=== PATIENT | male | born 1940 | race Caucasian/White ===

== ENCOUNTER 2018-11-21 18:30 | Inpatient (IN) ==
[2018-11-21] MEDS ORDERED: NS 1,000 ML IV ONE (18:38)
[2018-11-21] MEDS ORDERED: ROCEPHIN 1 GM in NS 50 ML IV ONE (18:38)
--- NOTE | 2018-11-21 19:11 | Diag Imaging Result Doc PS360 ---
EXAM: CHEST-PORTABLE - 11/21/2018 HISTORY: pna TECHNIQUE: Portable chest COMPARISON: None. FINDINGS: Inspiration is mildly shallow, with mild atelectasis at lung bases. There is possibly mild infiltrate at the left infrahilar region. There is no dense consolidation, pleural effusion, or pneumothorax identified. Heart size appears to be normal. IMPRESSION: Mildly shallow inspiration, mild atelectasis at lung bases. Possible mild infrahilar infiltrate on the left. Electronically signed by Tutu Ho 11/21/2018 7:09 PM
[2018-11-21 19:12] LABS: URINE SOURCE CLEAN CATCH
[2018-11-21 19:19] LABS: BASO# 0.01 X1000 (0.0-0.2); BASO% 0.1 % (0.0-0.8); EOS# 0.03 X1000 (0.0-0.7); EOS% 0.3 % (0.0-10.0); HEMATOCRIT 27.5 % (42.0-52.0); IMM GRAN# 0.04 X1000 (0.0-0.04); IMM GRAN% 0.4 % (0.0-0.5); LYMPH# 0.45 X1000 (1.2-3.4); LYMPH% 3.9 % (20.5-51.1); MCHC 32.7 g/dL (33-37); MCV 85.7 FL (81-99); MONO# 0.71 X1000 (0.11-0.59); MONO% 6.2 % (1.7-9.3); MPV 9.3 FL (7.4-10.4); NEUT# 10.18 X1000 (1.4-6.5); NEUT% 89.1 % (42.2-75.2); PLT 333 X1000 (130-400); RBC 3.21 XMIL (4.7-6.1); RDW 18.1 % (11.5-14.5); WBC 11.42 X1000 (4.8-10.8)
[2018-11-21 19:20] LABS: BILIRUBIN URINE SMALL (NEGATIVE); BLOOD URINE MODERATE (NEGATIVE); COLOR YELLOW; GLUCOSE URINE NEGATIVE (NEGATIVE); KETONE URINE 10 mg/dL (NEGATIVE); LEUKOCYTES URINE MODERATE (NEGATIVE); NITRITE URINE NEGATIVE (NEGATIVE); PROTEIN URINE 200 mg/dL (NEGATIVE); SP GRAVITY URINE 1.023; TURBIDITY URINE HAZY (CLEAR); UROBILINOGEN URINE 6 mg/dL (NORMAL)
[2018-11-21 19:21] LABS: UR EPITHELIAL CELLS <10 /HPF (<10); URINE BACTERIA NEGATIVE /HPF; URINE RBC TNTC /HPF (<10); URINE WBC 20-40 /HPF (<10)
[2018-11-21 19:40] LABS: INR 1.05; PROTIME 14.6 Seconds (11.0-16.0)
[2018-11-21 19:41] LABS: PTT 32.7 Seconds (22.3-41.8)
[2018-11-21 19:42] LABS: AGAP 13; ALB/GLOB RATIO 1.1; ALBUMIN 2.7 g/dL (3.5-5.0); ALKALINE PHOSPHATASE 580 U/L (32-122); BUN 16 mg/dL (8-22); CALCIUM 8.7 mg/dL (8.8-10.2); CHLORIDE 92 mmol/L (98-107); CK PROFILE 68 U/L (24-204); COSMO 262; CREATININE 0.7 mg/dL (0.7-1.2); ESTIMATED GFR > 60; GLUCOSE 96 mg/dL (70-104); GOT 119 U/L (10-34); GPT 54 U/L (10-44); POTASSIUM 4.9 mmol/L (3.5-5.1); SODIUM 130 mmol/L (136-145); TCO2 25 mmol/L (25-35); TOTAL BILIRUBIN 4.47 mg/dL (0.20-1.00); TOTAL PROTEIN 5.2 g/dL (6.3-8.3)
--- NOTE | 2018-11-21 20:47 | PROVIDER DOCUMENTATION ---
This chart was entered by Ebony Palmer Scribe, acting as scribe for Mattie Martins MD. HPI-General Adult - General Stated Complaint: AMS,N/V,POSS UTI Time Seen by Provider: 11/21/18 18:33 Source: patient, EMS Allergies/Adverse Reactions: Patient Allergies Allergy/AdvReac Type Severity Reaction Status Date / Time No Known Allergies Allergy Verified 11/21/18 19:12 - History of Present Illness -Gen Adult Nature of Presenting Problems: Pt is 78/m presenting to ED via EMS, which family called. Pt is reported as having been dx w/ UTI and just starting keflex today. He is confused and combative and sts that his abd hurts. Reported N/V. 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 It is undetermined whether or not patient has been eating and drinking enough. Pt also has hx of cancer, but unsure as to what type at time of arrival. Location of Pain/Injury: reports: abdomen Pain Radiation: reports: no radiation Quality of Pain: reports: other (unsure, as pt is AMS and combative, but does state that is generally hurts.) Severity: reports: moderate Onset/Duration: reports: unsure Timing: reports: still present Context/Activities at Onset: reports: none Modifying Factors: improves with: nothing Associated Symptoms: reports: fever/chills (some low grade temp. 100.1), nausea, vomiting Similar Symptoms Previously?: Yes Recently seen or treated by another doctor?: Yes Review of Systems - Adult - REVIEW OF SYSTEMS - ADULT Constitutional: reports: fever. denies: chills Ears, Nose, Mouth & Throat: reports: no symptoms reported Cardiovascular: reports: no symptoms reported Respiratory: reports: no symptoms reported Gastrointestinal: reports: abdominal pain, nausea, vomiting Genitourinary: reports: other (Current UTI reported, no specific symptoms identified.) Musculoskeletal: reports: no symptoms reported Integumentary: reports: no symptoms reported Neurological: reports: no symptoms reported Psychiatric: reports: no symptoms reported Endocrine: reports: no symptoms reported Hematologic/Lymphatic: reports: no symptoms reported Allergic/Immunologic: reports: no symptoms reported All Other Systems: Reviewed and Negative Past History - Adult - PAST MEDICAL HISTORY-ADULT Review of Records: reports: Old Records Reviewed, Nursing Assessment Review, Medications Reviewed, Social history reviewed & non-contributory. Physical Exam-General - PHYSICAL EXAM-ADULT Initial Vital Signs Reviewed: Yes - CONSTITUTIONAL General Appearance: alert, moderate distress, thin, anxious, combative, other (AMS) - EYES Eyes: PERRL/EOMI, pink conjunctivae - HEAD, EARS, NOSE, MOUTH & THROAT HENMT: negative: moist mucous membranes (Dry, w/ greenish medication reminence from chewing Kelflex at home.) - NECK Neck: non-tender, full range of motion, supple, normal inspection - RESPIRATORY Respiratory: lungs clear - CARDIOVASCULAR Cardiovascular: regular rate, rhythm - GASTROINTESTINAL (ABDOMEN) Abdominal Exam: normal bowel sounds, soft, tenderness (diffuse abd tenderness) - MUSCULOSKELETAL Back Exam: normal inspection, no CVA tenderness, no vertebral tenderness Extremity: normal range of motion, non-tender, normal gait, other (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) - SKIN Integumentary: normal color, warm/dry - NEUROLOGIC Neurologic: grossly normal - PSYCHIATRIC Psych/Mental Status: anxious, other (Pt is confused and combative, disagreeing w/ everything that is spoken to him.) Progress - PLAN OF CARE/RESULTS Progress/Plan/Lab Results: Orders Category Date Time Status Cardiac Monitoring DIRECTED Care 11/21/18 18:33 Active Finger Stick Blood Sugar (ED) DIRECTED Care 11/21/18 18:33 Active Oxygen Therapy- ED Nursing DIRECTED Care 11/21/18 18:33 Active Saline Loc NOW Care 11/21/18 18:33 Active CHEST-PORTABLE [RAD] Stat Exams 11/21/18 18:33 Ordered BLOOD CULTURE [BLDCUL] Stat Lab 11/21/18 18:38 Uncollected CBC WITH ELECTRONIC DIFF [HEME] Stat Lab 11/21/18 18:33 Uncollected CK PROFILE [SP CHEM] Stat Lab 11/21/18 18:33 Uncollected COMPREHENSIVE METABOLIC PANEL [CHEM] Stat Lab 11/21/18 18:33 Uncollected LACTATE, PLASMA [CHEM] Stat Lab 11/21/18 18:33 Uncollected PROTIME WITH INR [COAG] Stat Lab 11/21/18 18:33 Uncollected PTT [COAG] Stat Lab 11/21/18 18:33 Uncollected TROPONIN T Stat Lab 11/21/18 18:33 Uncollected URINALYSIS [URINALYSIS] Stat Lab 11/21/18 18:33 Ordered 0.9% Sodium Chloride Inj [Ns] 1,000 ml Med 11/21/18 18:38 Active IV 999 mls/hr CefTRIAXONE [Rocephin] 1 gm Med 11/21/18 18:38 Active 0.9% Sodium Chloride Inj [Ns] 50 ml IV NOW Altered Mental Status Stat Oth 11/21/18 18:33 Ordered EKG [EKG] Stat Ther 11/21/18 18:33 Ordered [facility] [address] , [address], [place] [address] Department of Imaging Patient: KESHAV GUARDADO ADM Date: 11/21/18 MR#: [id number] : 1940 ADM Status: PRE ER Age/Sex: 78/M Room/Bed: Loc: ED Ordering Physician: Mattie Martins MD Family Physician: Reason for Procedure: pna ___ Signed EXAM: CHEST-PORTABLE - 11/21/2018 HISTORY: pna TECHNIQUE: Portable chest COMPARISON: None. FINDINGS: Inspiration is mildly shallow, with mild atelectasis at lung bases. There is possibly mild infiltrate at the left infrahilar region. There is no dense consolidation, pleural effusion, or pneumothorax identified. Heart size appears to be normal. IMPRESSION: Mildly shallow inspiration, mild atelectasis at lung bases. Possible mild infrahilar infiltrate on the left. Electronically signed by Tutu Ho 11/21/2018 7:09 PM 11/21/181908 Interpreting Physician: Tutu Ho MD Dictated Date/Time: 11/21/181907 cc: Mattie Martins MD; Result Diagrams: 11/21/18 18:50 11/21/18 18:50 - CONSULTS/PCP/HOSPITALIST Notification #1 *Consult/PCP/Hospitalist*: Dr. Mccormack Consult Disposition: Admit Departure - Departure Date of Disposition Decision: 11/21/18 Time of Disposition Decision: 22:03 DIAGNOSIS: Mental confusion, Pneumonia, Hematuria, Metastatic cancer to liver Disposition: ADMITTED INPATIENT 09 Certified Medical Emergency: Emergent Condition: Stable Referrals and Follow-Ups: RADHA NARVAEZ [Other] - Critical Care Note This patient required my direct & personal management of CC.: No Attestation - Physician/ NOÉ Attestation Patient care was provided by Advanced Practice Provider:: No The physician spent face to face time with patient:: Yes Advanced Practice Provider documentation review:: Supervising physician onsite and consulted in the evaluation and care of this patient. The physician did have a face to face encounter with the patient. This chart was documented by the indicated scribe, (Ebony Palmer, [employer]) and accurately reflects the services I performed and decisions made by me, Mattie Maritns MD, as attested by the provider's signature.
--- NOTE | 2018-11-21 21:16 | Diag Imaging Result Doc PS360 ---
EXAM: CT ABD/PELVIS W/IV CONT ONLY - 11/21/2018 HISTORY: pyelo TECHNIQUE: CT abdomen/pelvis with intravenous contrast COMPARISON: None. FINDINGS: There are streak artifacts from the patient's arms which limit detail. The liver demonstrates heterogeneous attenuation, with apparent subtle solid lesions, presumably metastases. There are also some scattered hepatic cysts. There is intrahepatic biliary ductal dilatation. There are apparent lymph nodes with necrosis at the joy hepatis. The possibility of these are obstructing the common hepatic duct cannot be excluded. There is edema around the gallbladder. There are no calcified gallstones identified. There is no pancreatic inflammation identified. There is aneurysmal dilatation of the mid aorta measuring 3.7 x 3.9 cm. There is an inferior vena cava filter present. There is mild abdominal retroperitoneal adenopathy. There is a large mass/adenopathy at the left iliac region. There is a destructive mass involving the nearby left acetabulum. There is left inguinal adenopathy. There is a left ureteral stent in place. There is mild fullness of the left upper renal collecting system. The left kidney is mildly small and enhances less densely than the right. However, both kidneys enhance relatively homogeneously. There is no discrete evidence of pyelonephritis. IMPRESSION: Heterogeneous enhancement liver, some which apparently relates to hepatic metastases. Intrahepatic biliary ductal dilatation. Possible obstruction of the common hepatic duct by lymph nodes at the joy hepatis. Edema around gallbladder. No calcified gallstones. 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 Mild abdominal retroperitoneal adenopathy. Large mass/adenopathy at left iliac region. Destructive lesion involving the left acetabulum. Left inguinal adenopathy. Left ureteral stent in place. Mild fullness of left upper renal collecting system. No discrete evidence of pyelonephritis. This exam was performed using automated exposure control, adjustment of mA or kV according to patient size, and/or use of iterative reconstruction technique. Electronically signed by Tutu Ho 11/21/2018 9:14 PM
--- NOTE | 2018-11-21 21:23 | Diag Imaging Result Doc PS360 ---
EXAM: CT HEAD W/CONTRAST - 11/21/2018 HISTORY: ams - verbal order per Dr Martins - contrast given prior to ct hd order TECHNIQUE: CT head with intravenous contrast COMPARISON: None. FINDINGS: There is no evidence of intracranial hemorrhage, mass effect, midline shift, or hydrocephalus. There are mild chronic appearing microvascular ischemic changes. There is no indication of recent infarct, although acute infarcts may not be immediately visible. There is no abnormal enhancement identified. There is no evidence of skull fracture. IMPRESSION: No visible acute intracranial abnormality. No hemorrhage, mass effect, or abnormal enhancement seen. This exam was performed using automated exposure control, adjustment of mA or kV according to patient size, and/or use of iterative reconstruction technique. Electronically signed by Tutu Ho 11/21/2018 9:20 PM
--- NOTE | 2018-11-21 23:45 | ED EKG INTERP ---
This chart was entered by Ebony Palmer Scribe, acting as scribe for Mattie Martins MD. EKG Interpretation - EKG Time of EKG reading by physician:: 19:21 EKG Read and Signed by:: Mattie Martins EKG Interpretation (*Must complete 3 of following elements*): Abnormal (Normal sinus rhythm, left axis deviation, Left bundle branch block,, Abnormal ECG) Rate: 84 Rhythm: Normal sinus Attestation - Physician/ NOÉ Attestation Patient care was provided by Advanced Practice Provider:: No The physician spent face to face time with patient:: Yes Advanced Practice Provider documentation review:: Supervising physician onsite and consulted in the evaluation and care of this patient. The physician did have a face to face encounter with the patient. This chart was documented by the indicated scribe, (Ebony Palmer Scribe) and accurately reflects the services I performed and decisions made by me, Mattie Martins MD, as attested by the provider's signature.
--- NOTE | 2018-11-22 00:44 | HISTORY AND PHYSICAL ---
PRIMARY CARE PHYSICIAN: The patient is visiting from [place]. His primary care physician is Dr. Humberto Mirza. CHIEF COMPLAINT: Altered mental status. HISTORY OF PRESENTING ILLNESS: An 78-year-old male with a history of bladder cancer with liver metastases, seizures, left mass in his iliac region and DVT who had presented to emergency department due to mental status changes for the past 3 days. As per family, he was becoming more confused, and combative, and agitated and subsequently had brought into the emergency department. In the ED, he was evaluated and he was moderately confused and refusing any kind of treatment. The patient's family had stated that he recently had a left ureteral stent replaced and he did have a urinary tract infection and they thought that his UTI probably returned again. The patient had laboratories done which did show elevated white blood cell count., and his urinanalysis showed blood.. Due to these presenting symptoms and presumed infection from UTI, it was thought that he would need admission for further management. At the time of my examination, he was mildly agitated and confused. However, he was denying any headache, chest pain, shortness of breath or any weight changes. PAST MEDICAL HISTORY: Includes seizures, bladder cancer with metastases to liver, left iliac mass, DVT. PAST SURGICAL HISTORY: Left ureteral stent, left IVC filter, bilateral hip surgery, left BKA. ALLERGIES: Depakote, Vimpat, Versed, Tegretol, Keppra, Provigil, Cipro, Zocor, trazodone, latex, Bactrim, Seroquel, phenobarbital, Trileptal, doxycycline. CURRENT MEDICATIONS: Include Briviact 50 mg 1 p.o. b.i.d., Lamictal XR 200 mg 2 tablets p.o. at bedtime, [place] 10 one p.o. q.6 hours, Detrol 2 mg 1 p.o. at bedtime, Voltaren gel to apply to bilateral knees, Prevacid 30 mg 1 p.o. q.a.m., testosterone injections q.weekly, Genotropin injection 0.4 mg daily, Flomax 0.4 mg p.o. daily, CBD oil and aspirin 325 mg p.o. daily. SOCIAL HISTORY: He is a former smoker. No history of alcohol or illicit drug use. FAMILY HISTORY: No history of coronary disease. REVIEW OF SYSTEMS: Fourteen point review of systems as listed in HPI. Other systems negative. PHYSICAL EXAMINATION: GENERAL: Mildly confused elderly male. He is without any respiratory distress. VITAL SIGNS: Temperature 99.0 degrees, pulse 88, respiration 34, blood pressure 127/85. HEENT: Atraumatic, normocephalic. PERRLA. NECK: No masses. CHEST: Bibasilar rales. CARDIOVASCULAR: Regular rate and rhythm. ABDOMEN: Soft, positive bowel sounds. EXTREMITIES: There is a left BKA. GENITOURINARY: No bladder distention. SKIN: Warm. LABORATORIES AND STUDIES: WBCs 11.42, hemoglobin 9.1, hematocrit 27.5, platelets 233,000. Sodium 130, potassium 4.9, chloride 92, CO2 is 25, BUN is 16, creatinine 0.7, glucose is 96. Troponin is 0.010. UA shows moderate blood and leukocytes. Chest x-ray shows possible mild infrahilar infiltrates on the last. However, this was seen on previous CAT scan about a month ago. Abdominal CT shows hepatic metastasis, and large mass in the left iliac region and left ureteral stent in place. CT of the head, no visible acute intracranial abnormality. ASSESSMENT: An 78-year-old elderly male with a history of seizures, bladder cancer with liver metastases, left iliac mass and deep venous thrombosis, who had presented to the emergency department with 3 days history of having fever and mental status changes. He was evaluated in the emergency department due to suspicion of a UTI as the source of his infection. He will require admission for further management. 1. Altered mental status. 2. Fever. 3. Suspected urinary tract infection. 4. Seizures. 5. Liver metastases. PLAN: 1. We will admit patient to medical floor with telemetry. 2. We will continue with neurologic checks. 3. We will check blood cultures and urine cultures. Start patient on empiric antibiotics. 4. We will put patient on seizure precaution and restart his antiepileptic agents. 5. Restart other home medications. 6. We will continue to follow, and reassess and make further recommendation based on patient's clinical course. cc: Shelton Mccormack MD MTDD
[2018-11-22] MEDS ORDERED: ZOFRAN IV PRN (02:26)
[2018-11-22] MEDS ORDERED: NS 1,000 ML IV SCH (02:26)
[2018-11-22 05:33] LABS: URINE SOURCE CLEAN CATCH
[2018-11-22 05:56] LABS: BILIRUBIN URINE MODERATE (NEGATIVE); BLOOD URINE MODERATE (NEGATIVE); COLOR YELLOW; GLUCOSE URINE NEGATIVE (NEGATIVE); KETONE URINE 20 mg/dL (NEGATIVE); LEUKOCYTES URINE NEGATIVE (NEGATIVE); NITRITE URINE NEGATIVE (NEGATIVE); PROTEIN URINE 100 mg/dL (NEGATIVE); TURBIDITY URINE CLEAR (CLEAR); UROBILINOGEN URINE 4 mg/dL (NORMAL)
[2018-11-22 06:17] LABS: UR EPITHELIAL CELLS <10 /HPF (<10); URINE BACTERIA NEGATIVE /HPF; URINE RBC TNTC /HPF (<10)
[2018-11-22] MEDS ORDERED: NORCO-10 PO PRN (06:20)
--- NOTE | 2018-11-22 06:57 | EKG Report ---
Test Performed on : 11/21/2018 7:21:39 PM Test Reason : ams Blood Pressure : / mmHG Vent. Rate : 084 BPM Atrial Rate : 084 BPM P-R Int : 188 ms QRS Dur : 162 ms QT Int : 404 ms P-R-T Axes : 041 -48 084 degrees QTc Int : 477 ms Normal sinus rhythm. Left axis deviation Left bundle branch block Abnormal ECG No previous ECGs available Unconfirmed Result
[2018-11-22 07:10] LABS: URINE CASTS NONE SEEN; URINE CRYSTALS NONE SEEN; URINE SMALL ROUND CELLS NONE SEEN; URINE YEAST NONE SEEN
[2018-11-22 07:11] LABS: SP GRAVITY URINE 1.015
[2018-11-22 07:37] LABS: BASO# 0.01 X1000 (0.0-0.2); BASO% 0.1 % (0.0-0.8); EOS# 0.04 X1000 (0.0-0.7); EOS% 0.4 % (0.0-10.0); HEMATOCRIT 25.7 % (42.0-52.0); HEMOGLOBIN 8.2 g/dL (14.0-18.0); IMM GRAN# 0.04 X1000 (0.0-0.04); IMM GRAN% 0.4 % (0.0-0.5); LYMPH# 0.47 X1000 (1.2-3.4); LYMPH% 4.5 % (20.5-51.1); MCH 27.6 PG (27-31); MCHC 31.9 g/dL (33-37); MCV 86.5 FL (81-99); MONO# 0.67 X1000 (0.11-0.59); MONO% 6.4 % (1.7-9.3); MPV 9.4 FL (7.4-10.4); NEUT# 9.29 X1000 (1.4-6.5); NEUT% 88.2 % (42.2-75.2); PLT 296 X1000 (130-400); RBC 2.97 XMIL (4.7-6.1); RDW 18.5 % (11.5-14.5); WBC 10.52 X1000 (4.8-10.8)
[2018-11-22 07:38] LABS: AGAP 10; BUN 12 mg/dL (8-22); CALCIUM 8.6 mg/dL (8.8-10.2); CHLORIDE 94 mmol/L (98-107); COSMO 261; CREATININE 0.6 mg/dL (0.7-1.2); ESTIMATED GFR > 60; GLUCOSE 102 mg/dL (70-104); POTASSIUM 4.5 mmol/L (3.5-5.1); SODIUM 130 mmol/L (136-145); TCO2 26 mmol/L (25-35)
[2018-11-22 07:50] LABS: BANDS 17 % (0-1); LYMPHS 3 % (21-51); MONO 4 % (1-9); SEGS 76 % (42-75)
[2018-11-22] MEDS ORDERED: ASPIRIN PO SCH (09:00)
[2018-11-22] MEDS: BRIVIACT PO SCH ×2 (10:49→22:53)
[2018-11-22] MEDS: CALTRATE 600 + D PO SCH (10:49)
[2018-11-22] MEDS: VITAMIN C PO SCH (10:49)
[2018-11-22] MEDS: PRILOSEC PO SCH (10:52)
[2018-11-22] MEDS: CULTURELLE PO SCH (10:56)
[2018-11-22] MEDS: FLOMAX PO SCH (11:14)
[2018-11-22] MEDS: PATIENT'S OWN MED PO SCH ×2 (12:19→22:01)
--- NOTE | 2018-11-22 14:33 | PROGRESS NOTE ---
DATE: 11/22/2018 SUBJECTIVE: The patient has no major complaints. He looks jaundiced. He is having some pain, but overall improved. OBJECTIVE: Blood pressure 131/59, heart rate 79, respiratory rate 20, temperature 99.5 degrees and 98% on 2 L.Cardiovascular: Regular rate and rhythm. Pulmonary: Bilateral breath sounds diminished at the bases. GI: Soft, nontender, and nondistended. Bowel sounds are positive. LABORATORY DATA: White count is 10, hemoglobin and hematocrit 8 and 25, and platelets of 296,000. Sodium 130. Urine still shows qbe-nuazatyo-cr-count red blood cells, and 10 to 20 white blood cells. PROBLEM LIST: 1. UTI. Awaiting urinary culture. Continue empiric antibiotics and follow. 2. Lymphadenopathy which I think is probably related to the cancer causing acetabular pain, but also possibly causing obstructive symptoms and his liver. May get a GI opinion and Oncology opinion. We can start off with an Oncology opinion, and we will continue to follow. I am just a little concerned that there is a possibility that hardware is infected. We will continue to follow. I will get a urology opinion. DISPOSITION: 1. Pending his clinical status. We will continue to follow. 2. Hyponatremia. Check urine electrolytes and monitor closely. cc: Henry Palomares MD
[2018-11-22] MEDS ORDERED: VANCOMYCIN IV PER PHARMACY MISC SCH (19:15)
[2018-11-22] MEDS ORDERED: VANCOMYCIN 1,600 MG in NS 250 ML IV ONE (20:00)
[2018-11-22] MEDS ORDERED: MORPHINE IM ONE (20:12)
[2018-11-22] MEDS: ROCEPHIN 1 GM in NS 50 ML IV SCH (20:30)
[2018-11-22] MEDS ORDERED: HALDOL IV ONE (21:01)
--- NOTE | 2018-11-22 21:10 | CONSULTATION ---
DATE OF CONSULTATION: 11/22/2018 CHIEF COMPLAINT: 1. Metastatic bladder cancer. 2. Left ureteral stent 3. Altered mental status. HISTORY OF PRESENT ILLNESS: Mr. Field is an 78-year-old with history of metastatic bladder cancer with liver metastasis and significant left iliac adenopathy, history of seizures, history of DVT, who presented to the emergency room on 11/21/2018 due to altered mental status for several days. Per his family, he was becoming more agitated, confused, and combative. They brought him to the emergency room for evaluation. The patient was evaluated by the ED and was admitted by the hospitalists for further workup. The patient had a CT scan of the abdomen, which showed a left ureteral stent that was in good position within the left kidney with no evidence of hydronephrosis, as well as significant lymphadenopathy in the left iliac chain that progressed into the inguinal area. The patient also had lymphadenopathy near the joy hepatis with congestion and multiple metastatic lesions to the liver. The patient was found to have a normal renal function 0.7 creatinine, white blood cell count of 11, with elevated liver enzymes and bilirubin. Urology was consulted today regarding possible urinary tract infection with a stent in place. The patient had 2 urinalyses sent so far, which have both showed no evidence of bacteria and are showing mostly red blood cells with elevated bilirubin. The patient has a history of being diagnosed with bladder cancer back in 2012, which was confined to the bladder with no muscle involvement, and he has had several recurrences since then; however, back in April, he was found to have multiple metastatic lesions and underwent stent placement in July for the first time due to left hydronephrosis. This was exchanged most recently in September 2018. The patient has been altered and confused off and on since then. The patient has history of multiple falls. However, per family appears to be more confused and agitated. The patient was complaining of abdominal pain on presentation, but today denies any chest pain, shortness of breath, fevers, or chills. The patient has had some low- grade temperatures around 99, but no true fevers. PAST MEDICAL HISTORY: 1. Seizures. 2. Metastatic bladder cancer. 3. DVTs. 4. History of left [id number]-[id number] amputation. PAST SURGICAL HISTORY: 1. Multiple transurethral resection of bladder tumors. 2. IVC filter placement. 3. Left ureteral stent placement. 4. Left vixpv-eew-kmmx amputation. 5. Bilateral hip surgery. ALLERGIES: 1. Depakote. 2. Vimpat 3. Versed 4. Tegretol. 5. Keppra. 6. Provigil. 7. Cipro. 8. Zocor. 9. Trazodone. 10. Lasix. 11. Bactrim. 12. Seroquel. 13. Phenobarbital. 14. Doxycycline. CURRENT MEDICATIONS: 1. Briviact 50 mg 1 pill b.i.d. 2. Lamictal XR 200 mg 2 pills p.o. at bedtime. 3. [place] 10 mg q.6 h. as needed for pain. 4. Detrol 2 mg p.o. at bedtime. 5. Prevacid 30 mg p.o. 6. Testosterone injections weekly. 7. Genatropine injection 0.4 mg daily. 8. Flomax 0.4 mg daily. 9. CBD oil. 10. Aspirin 325 mg. SOCIAL HISTORY: Patient is a former smoker, but denies alcohol or illicit drug use. FAMILY HISTORY: Denies family history of malignancy. REVIEW OF SYSTEMS: A 12 point review of systems was performed. All pertinent positives and negatives in HPI. PHYSICAL EXAMINATION: Vital Signs: Temperature 98.6, heart rate 79, blood pressure 128/57, oxygenation 95% on room air. General: No acute distress. Resting comfortably in bed. Alert, but not oriented to place, situation, or time, only oriented to self. HEENT: Normocephalic, atraumatic. Pupils equal, round, and reactive to light. Evidence of scleral icterus. Neck: Trachea midline with no palpable masses. Pulmonary: Good respiratory effort without audible wheezing or rales. Cardiovascular: Regular rate and rhythm. No evidence of lower extremity edema. 1+ lower extremity pulse on the right side. Abdomen: Soft, nontender, nondistended. No palpable masses or hepatosplenomegaly . Extremities: Evidence of a left wfuxl-eii-sbev amputation. Skin: Multiple lesions on the lower extremities, which appear to be stable in appearance and are not erythematous, but appear to be related to venous congestion. Evidence of jaundice. Genitourinary: No suprapubic tenderness. No CVA tenderness. Normal phallus with slightly hypospadiac meatus. Bilateral testicles palpated without masses or tenderness to palpation. Lymphadenopathy in left groin. Neurologic: Gross motor and sensory intact. The patient is alert, but not oriented, DIAGNOSTIC STUDIES: White blood cell count 10.5, hemoglobin 8.2, hematocrit 25.7, platelets 296,000. Sodium 130, potassium 4.5, chloride 94, bicarbonate 26, creatinine 0.6, BUN 12, glucose 102. The patient had liver enzymes done yesterday, which showed bilirubin of 4.47, AST of 119, ALT of 54, alkaline phosphatase of 580. CT abdomen and pelvis imaging reviewed, which showed evidence of good placement of a left ureteral stent with no evidence of hydronephrosis, evidence of multiple lesions within the liver itself, as well as lymphadenopathy near the common bile duct. The patient also has evidence of large lymphadenopathy in the left groin that seems to be coming from the iliac chain. The patient had a negative CT head. ASSESSMENT AND PLAN: Mr. Field is an 78-year-old with history of metastatic bladder cancer, seizures, deep vein thrombosis, who presents in evaluation regarding concern for possible infection of the bladder and possible pyelonephritis. Images reviewed which showed no obvious stranding or signs of pyelonephritis on imaging. The patient has a long history of bladder cancer first diagnosed in 2012 and has now become metastatic with multiple lesions within the liver as well as lymphadenopathy in the iliac chain on the left. The patient has been progressively being more confused. The patient describes this is new in onset. However, also describes he has had multiple reactions to medications where he becomes confused and altered. The patient had a negative CT of the head, which showed no evidence of intracranial masses or signs of stroke. Uncertain what is leading to his altered mental status; however, patient does have significantly elevated liver enzymes and concern for hepatostasis. I think this could be leading to it as his bilirubin is significantly elevated as well as his alkaline phosphatase. The patient had urinalysis which was sent that showed no evidence of bacteria and showed a moderate amount of blood with elevated amounts of bilirubin, which could be causing false-positive RBCs. His urine does look red tinged today, which is at bedside. The patient did not have a urine culture sent on presentation. This has been ordered and awaiting collection. Would continue with IV antibiotics until culture results return and tailor to the possible infection. The patient does have negative UAs for bacteria; however, UTI would be a likely source. I think much of the patient's symptoms are likely related to disease progression and worsening of his cancer. The patient is being seen by Dr. Summers with Hematology/Oncology. The patient would likely benefit from Gastroenterology consultation regarding any optimization of medications that may help with his elevated liver enzymes. Prognosis remains guarded. We will continue monitor from a urologic standpoint. Please call with questions or concerns. cc: Rupesh Perdue MD [facility]
[2018-11-22] MEDS: DETROL PO SCH (22:43)
[2018-11-22] MEDS: VITAMIN D PO SCH (22:43)
[2018-11-23] MEDS: HALDOL IM PRN ×3 (01:02→17:31)
[2018-11-23] MEDS: NS 1,000 ML IV SCH ×3 (05:27→16:31)
[2018-11-23] MEDS: PRILOSEC PO SCH (06:36)
[2018-11-23 07:54] LABS: HEMATOCRIT 25.2 % (42.0-52.0); HEMOGLOBIN 8.1 g/dL (14.0-18.0); MCH 27.7 PG (27-31); MCHC 32.1 g/dL (33-37); MCV 86.3 FL (81-99); MPV 9.1 FL (7.4-10.4); PLT 278 X1000 (130-400); RBC 2.92 XMIL (4.7-6.1); RDW 18.7 % (11.5-14.5); WBC 9.67 X1000 (4.8-10.8)
[2018-11-23 07:55] LABS: EOS# 0.02 X1000 (0.0-0.7); EOS% 0.2 % (0.0-10.0); IMM GRAN# 0.04 X1000 (0.0-0.04); IMM GRAN% 0.4 % (0.0-0.5); LYMPH# 0.35 X1000 (1.2-3.4); LYMPH% 3.6 % (20.5-51.1); MONO% 5.2 % (1.7-9.3); NEUT# 8.76 X1000 (1.4-6.5); NEUT% 90.6 % (42.2-75.2)
[2018-11-23 07:57] LABS: AGAP 11; ALB/GLOB RATIO 0.7; ALBUMIN 2.3 g/dL (3.5-5.0); ALKALINE PHOSPHATASE 572 U/L (32-122); BUN 13 mg/dL (8-22); CALCIUM 9.1 mg/dL (8.8-10.2); CHLORIDE 96 mmol/L (98-107); COSMO 261; CREATININE 0.6 mg/dL (0.7-1.2); ESTIMATED GFR > 60; GLUCOSE 98 mg/dL (70-104); GOT 141 U/L (10-34); GPT 58 U/L (10-44); POTASSIUM 3.9 mmol/L (3.5-5.1); SODIUM 130 mmol/L (136-145); TCO2 23 mmol/L (25-35); TOTAL BILIRUBIN 5.93 mg/dL (0.20-1.00); TOTAL PROTEIN 5.8 g/dL (6.3-8.3)
--- NOTE | 2018-11-23 08:18 | PROGRESS NOTE ---
DATE: 11/23/2018 SUBJECTIVE: Slight agitation overnight per patient's cousin, who is at bedside. The patient denies any pain this morning. Denies any nausea or vomiting. Has urinated several times. Remains afebrile. OBJECTIVE: Vital signs: Temperature 98 degrees, heart rate 79, blood pressure 118/61, oxygenation saturation 97% on room air. General: No acute distress. Resting comfortably in bed. Evidence of jaundice. Respiratory: Good respiratory effort without audible wheezing or rales. Abdomen: Soft, nontender, nondistended. No palpable masses. Genitourinary: No suprapubic tenderness. No CVA tenderness. Normal phallus. Bilateral testicles palpated without masses. MICROBIOLOGY: Gram-positive cocci in the blood. Urine culture in lab. ASSESSMENT AND PLAN: Mr. Field is an 78-year-old with a history of metastatic bladder cancer, seizures, deep venous thromboses, who presents in evaluation for possible infection and pyelonephritis. The patient had a CT scan which showed no obvious pyelonephritis. The patient has a long history of bladder cancer and was found to have metastatic lesions to the liver, bone, as well as a large lymph node within the left iliac chain. The patient has been altered and confused for several days now per family. The patient came in with elevated liver enzymes and bilirubin. The patient's renal function was normal with a white blood cell count downtrending yesterday. Awaiting a.m. labs today. We will continue with antibiotics as patient does have positive blood cultures. We will continue to tailor antibiotics to culture data. We will follow up his urine culture and treat appropriately. We will continue to monitor. Please call with questions or concerns. cc: Rupesh Perdue MD [facility]
[2018-11-23] MEDS: VITAMIN C PO SCH (08:53)
[2018-11-23] MEDS: ASPIRIN EC PO SCH (08:53)
[2018-11-23] MEDS: BRIVIACT PO SCH ×2 (08:53→21:15)
[2018-11-23] MEDS: FLOMAX PO SCH (08:53)
[2018-11-23] MEDS: CULTURELLE PO SCH (08:53)
[2018-11-23] MEDS: CALTRATE 600 + D PO SCH (08:53)
[2018-11-23] MEDS: PATIENT'S OWN MED PO SCH ×2 (09:03→21:16)
[2018-11-23] MEDS ORDERED: B & O 16A SUPP PR PRN (11:29)
[2018-11-23] MEDS: PYRIDIUM PO SCH ×4 (11:44→21:17)
--- NOTE | 2018-11-23 14:43 | PROGRESS NOTE ---
DATE: 11/23/2018 SUBJECTIVE: Per family, he has gotten steadily more confused over the last 24 hours, worse last night. He had to be given Haldol. I appreciate the night's hospitalist service attention with the matter. OBJECTIVE: Blood pressure is 126/65. Cardiovascular: Regular rate and rhythm. Temperature is 98.7, pulse rate 82, respiratory rate of 18. Pulmonary: Bilateral breath sounds, clear to auscultation. GI: Soft, nontender and nondistended. Bowel sounds were positive. DIAGNOSTIC DATA: White count is 9, hemoglobin and hematocrit of 8 and 25, platelets 278. Sodium 130. Total bilirubin is 5.9, AST is 141, ALT of 58, alkaline phosphatase 572. He is not doing much better at all. He is jaundiced. PROBLEMS: 1. Urinary tract infection. No growth, though. Blood cultures have one positive for gram- positive cocci, but I think that is likely to be a contaminant, but we will see. We have added vancomycin to his Rocephin and will follow. 2. Metastatic bladder cancer. He has multiple lesions in his liver with obstruction. I have gotten GI opinion. I have not seen Dr. Summers's noted, but the family was tearful, so I am sure he discussed appropriate timeframe, that the patient is declining and may not survive this admission and may not survive for much longer. They are a very reasonable family, and daughter. Unfortunately, though, the patient is not from here, he is from [place]. But at this point, I do not think he can make a 10-hour trip. So we will continue to follow. Continue best supportive measures. Get a Palliative Care consult. 3. Hyponatremia. We will continue fluids gently. 4. Encephalopathy. May be multifactorial. I appreciate the low yield of the ammonia levels. I am not sure if he may have some degree of hepatic encephalopathy, though, but we will follow. DISPOSITION: The family is considering options. If he is not much improved, they will have to consider doing Hospice here locally. We will try to see how he does, because he seems to be deteriorating rapidly. He has metastatic bladder cancer diagnosed in 07/2018, but I think he is declining, unfortunately. We will keep the family posted. He did agree that he did not want to be maintained on life support or have significant measures, so we will continue to follow. cc: Henry Palomares MD
--- NOTE | 2018-11-23 17:10 | HEMO/ONC CONSULTATION ---
DATE: 11/23/2018 REASON FOR CONSULT: History of bladder carcinoma with metastasis to the liver. HISTORY OF PRESENTING ILLNESS: This is an 78-year-old man with history of bladder cancer with liver metastasis, who presents to the emergency department per family with mental status changes for the past 3 days. He is visiting his family from [place] where he has a primary care physician and oncologist. Per family he has become more confused and combative over the past 3 days. Patient's family states he recently had a left ureteral stent replaced and had a urinary tract infection which they suspect has returned. PAST MEDICAL HISTORY: Seizures, bladder cancer with metastasis to liver, left iliac mass, and DVT. PAST SURGICAL HISTORY: Left ureteral stent, left IVC filter, bilateral hip surgery, left BKA. ALLERGIES: Depakote, Vimpat, Versed, Tegretol, Keppra, Provigil, Cipro, Zocor, trazodone, latex, Bactrim, Seroquel, phenobarbital, Trileptal, doxycycline. CURRENT MEDICATIONS: 1. Briviact. 2. Lamictal. 3. [place]. 4. Detrol. 5. Voltaren. 6. Prevacid. 7. Testosterone injection. 8. Genotropin injection. 9. Flomax. 10. CBD oil. 11. Aspirin. SOCIAL HISTORY: He is a former smoker. No history of alcohol or illicit drug use. FAMILY HISTORY: None applicable. REVIEW OF SYSTEM: Negative except that which is listed in the HPI. PHYSICAL EXAMINATION: Vital signs: Temperature 98 degrees, pulse rate 79, respiratory rate 20, blood pressure 118/61, O2 saturation 97% on room air. 0/10 pain. General: Elderly appearing gentleman who is confused. Respiratory: Bibasilar rales. Cardiovascular: Normal S1, S2. Regular rate and rhythm. Abdomen: Soft, nontender, nondistended. Positive bowel sounds. Extremities: Left BKA noted. Pedal edema noted to the right leg. LABORATORY DATA: WBC 9.67, hemoglobin 8.1, hematocrit 25.2, platelet 278,000. Sodium 130, potassium 3.9, creatinine 0.6, bilirubin 5.93, alkaline phosphatase 572. Urine is positive for protein, ketones, moderate blood, moderate bilirubin, 10 to 20 white blood cells. ASSESSMENT: 1. Altered mental status. 2. Suspected urinary tract infection. 3. Seizures. 4. Liver metastasis. 5. Metastatic bladder cancer. 6. History of deep venous thrombosis. PLAN: Patient has bone metastasis, liver metastasis, lymph node metastasis in the abdomen and bile duct obstruction. Continue to treat the patient medically. We will follow up with the family and develop a plan of care. Dictated by FAITH Del Castillo for Cas Summers MD Patient seen and examined. History is noted above. He is visiting family here in [place] has traveled from [place]. Patient diagnosed with bladder cancer several years ago. In June of this year he was diagnosed to have metastatic disease to the liver. Due to his poor performance status, no palliative chemotherapy was recommended. Plan of care has been comfort measures. He was admitted to the hospital with change in mental status and is being treated for urinary tract infection. CT scan done this admission reveals metastatic disease to the liver and significant lymphadenopathy in the joy hepatis causing biliary obstruction and lymphadenopathy involving the abdomen and the pelvis as well as bone metastases. I had a lengthy discussion regarding these findings with the patients family. Comfort measures and hospice has been discussed. They would like to take him home to [place]. Continue current management and hope for mental status recovery in the next 48 hours or so. Hopefully he will be able to travel to [place] if he recovers from this illness. Discussed with Dr. Marielle Summers M.D. cc: Cas Summers MD [facility]
--- NOTE | 2018-11-23 18:44 | GASTROENTEROLOGY CONSULTATION ---
DATE: 11/23/2018 REASON FOR CONSULTATION: Obstructive jaundice. HISTORY OF PRESENT ILLNESS: Mr. Durga Field is an 78-year-old gentleman with a past medical history of metastatic bladder cancer with metastasis to the liver and significant left iliac adenopathy, history of seizures, prior DVT, who presented to the ER on 11/21 with altered mental status for several days. History obtained from medical record and RN given the patient's altered mental status and lack of family to give collateral information at the bedside. Per report, the patient had been noticed to be more agitated, confused, and combative recently. He has had a history of multiple falls in the past. On presentation, he was noted complaining of abdominal pain. No reported fevers, chest pain, shortness of breath, or chills. The patient currently denies any abdominal pain. REVIEW OF SYSTEMS: Unable to obtain given patient's altered mental status. PAST MEDICAL HISTORY: Seizures, metastatic bladder cancer, prior DVT, history of left below-the- knee amputation. PAST SURGICAL HISTORY: Left ureteral stent placement, left IVC filter, bilateral hip surgeries, left BKA, multiple transurethral resection of bladder tumors. HOME MEDICATIONS: Lamictal, [place], Detrol, Prevacid, testosterone injections weekly, Genotropin injection, Flomax, CBD oil, aspirin, Briviact, Voltaren. ALLERGIES: Depakote, Vimpat, Versed, Tegretol, Keppra, Provigil, Cipro, Zocor, trazodone, latex, Bactrim, Seroquel, phenobarbital, Trileptal, doxycycline. SOCIAL HISTORY: He is a former smoker. No alcohol or drug use. FAMILY HISTORY: No history of coronary artery disease. Unable to give family history of GI diseases. PHYSICAL EXAMINATION: Vital Signs: Temperature 98.7 degrees, heart rate of 82, blood pressure 126/55, respiratory rate 18, O2 saturation 99% on room air. General: Patient is awake, confused, naked, lying in the bed, trying to get out of the bed. Does not answer questions appropriately. Unable to follow simple commands. HEENT: Mild scleral icterus. Extraocular motor intact. Moist mucous membranes. Neck: Supple. No JVD or lymphadenopathy. Cardiac: Regular rate and rhythm. No murmurs, rubs, or gallops. Lungs: Clear to auscultation bilaterally. No wheezing. Abdomen: Soft, nontender, nondistended. Normoactive bowel sounds. Palpable hepatomegaly. Extremities: No clubbing, cyanosis, or edema. Left BKA. Neuro: Patient is moving all extremities symmetrically. Cranial nerves 2-12 grossly intact. Unable to follow commands. Slightly agitated. LABS: White count of 9.6, hemoglobin of 8.1 from unknown baseline. On admission his hemoglobin was 9.0. Platelets of 278,000. INR of 1.05. Sodium of 130, potassium of 3.9, chloride of 96, bicarb 23, BUN of 13, creatinine 0.6. Total bilirubin of 5.93, AST of 141, ALT of 58, alkaline phosphatase of 572,000. Ammonia level of 30. Troponin is negative. CK of 68. Total protein of 5.8. Albumin of 2.3. Lactate of 1.5. UA shows proteinuria, ketones, moderate blood, moderate bilirubin, white blood cells 10-20, no epithelial cells. Blood cultures / shows gram-positive cocci. Urine culture, no growth to date. IMAGING: Chest x-ray on 11/21 shows mildly shallow inspiration, mild atelectasis at the bases, possible mild infrahilar infiltrate on the left. CT of the abdomen and pelvis with IV contrast only shows heterogeneous enhancement of the liver, some of which apparently relates to hepatic metastases, intrahepatic biliary ductal dilation. Possible obstruction from the common hepatic duct by lymph nodes at the joy hepatis. Edema around the gallbladder. No calcified gallstones. 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 Mild abdominal retroperitoneal adenopathy. Large mass adenopathy at the left iliac region. Destructive lesion involving the left acetabulum. Left inguinal adenopathy. Left ureteral stent in place. Mild fullness of the left upper renal collecting system. No discrete evidence of pyelonephritis. ASSESSMENT AND PLAN: Mr. Durga Field is an 78-year-old gentleman with a past medical history significant for metastatic bladder cancer with metastases to the bone and liver, who presents with several days of altered mental status, found to have a worsening cholestatic LFTs, bacteremia with gram-positive cocci, and possible urinary tract infection. The patient is currently on antibiotics with vancomycin, ceftriaxone. Other labs are notable for hyponatremia. He did have some question of a mild infiltrate on his chest x-ray concerning for possible pneumonia. GI was consulted for evaluation of obstructive jaundice and evaluation for possible common bile duct stent placement given intrahepatic biliary dilation from lymphadenopathy in the joy hepatis. I will discuss the findings with Dr. Chávez, who is covering Dr. Nascimento, for an ERCP procedure. The patient's platelets and INR with are within normal limits. He has been afebrile. Unclear whether stent placement will actually improve his LFTs if he has significant metastasis in the liver, which he does. Thank you for this consult. We will follow with you. Please call with any questions or concerns.
[2018-11-23] MEDS: ROCEPHIN 1 GM in NS 50 ML IV SCH (21:14)
[2018-11-23] MEDS: DETROL PO SCH (21:15)
[2018-11-23] MEDS: VITAMIN D PO SCH (21:15)
[2018-11-24] MEDS ORDERED: VANCOMYCIN 1,250 MG in NS 250 ML IV SCH (02:00)
[2018-11-24] MEDS: PRILOSEC PO SCH ×2 (06:34→06:44)
[2018-11-24] MEDS: OXY IR PO PRN (06:34)
--- NOTE | 2018-11-24 07:01 | PROGRESS NOTE ---
DATE: 11/24/2018 SUBJECTIVE: No acute events overnight. The patient was not agitated or confused per nursing. The patient did receive a dose of Haldol yesterday for agitation. The patient has been urinating without issue. Denies any dysuria or flank pain. The patient does describe bilateral lower abdominal pain. The patient has not had a bowel movement since being here in the hospital. Remains afebrile. OBJECTIVE: Vital Signs: Temperature 98.1 degrees, heart rate 81, blood pressure 137/52, oxygen saturation is 98% on room air. General: No acute distress. Resting comfortably in bed. Alert and oriented to person. Respiratory: Good respiratory effort without audible wheezing or rales. Abdomen: Soft, nontender, slight distention, with no rebound or guarding. : No suprapubic tenderness. No CVA tenderness. Musculoskeletal: Moving all extremities. Labs: Urine culture from 11/22/2018 shows no growth. Blood cultures showing gram-positive cocci. ASSESSMENT AND PLAN: Mr. Field is an 78-year-old with a history of metastatic bladder cancer, seizures, deep vein thrombosis, who presents in evaluation for a possible urinary tract infection. The patient had a CT scan which showed no obvious pyelonephritis and two urinalyses that showed no bacteria. The patient has a long history of bladder cancer and was found to have metastatic lesions in the liver and bone, as well as a large lymph node within the left iliac chain. The patient continues to be intermittently confused and altered. The patient was found to have an elevated bilirubin as well as liver enzymes, and was seen by gastroenterology medicine yesterday. From a urologic standpoint, the patient seems to be voiding without issue. Denies any dysuria. The patient's vital signs are all within normal limits. He remains afebrile. We will continue to monitor labs as well as his urine culture. So far, there is no growth at 24 hours. We will continue to monitor. Please call with any questions or concerns. cc: Rupesh Perdue MD [facility]
[2018-11-24] MEDS: ASPIRIN EC PO SCH ×2 (07:45→14:21)
[2018-11-24] MEDS: CULTURELLE PO SCH ×2 (07:45→14:22)
[2018-11-24] MEDS: PYRIDIUM PO SCH ×4 (07:46→22:22)
[2018-11-24] MEDS: FLOMAX PO SCH ×2 (07:46→14:22)
[2018-11-24] MEDS: VITAMIN C PO SCH ×2 (07:47→14:22)
[2018-11-24] MEDS: CALTRATE 600 + D PO SCH ×2 (07:47→14:22)
[2018-11-24] MEDS: PATIENT'S OWN MED PO SCH ×2 (07:48→22:22)
[2018-11-24 08:42] LABS: BASO# 0.01 X1000 (0.0-0.2); BASO% 0.1 % (0.0-0.8); EOS# 0.02 X1000 (0.0-0.7); EOS% 0.2 % (0.0-10.0); HEMATOCRIT 25.6 % (42.0-52.0); HEMOGLOBIN 8.2 g/dL (14.0-18.0); IMM GRAN# 0.03 X1000 (0.0-0.04); IMM GRAN% 0.3 % (0.0-0.5); LYMPH# 0.37 X1000 (1.2-3.4); LYMPH% 3.3 % (20.5-51.1); MCH 27.3 PG (27-31); MCV 85.3 FL (81-99); MONO# 0.59 X1000 (0.11-0.59); MONO% 5.2 % (1.7-9.3); MPV 9.9 FL (7.4-10.4); NEUT# 10.31 X1000 (1.4-6.5); NEUT% 90.9 % (42.2-75.2); PLT 291 X1000 (130-400); RDW 18.7 % (11.5-14.5); WBC 11.33 X1000 (4.8-10.8)
[2018-11-24 08:44] LABS: AGAP 14; BUN 12 mg/dL (8-22); CALCIUM 8.7 mg/dL (8.8-10.2); CHLORIDE 94 mmol/L (98-107); COSMO 260; CREATININE 0.5 mg/dL (0.7-1.2); ESTIMATED GFR > 60; GLUCOSE 81 mg/dL (70-104); SODIUM 130 mmol/L (136-145); TCO2 22 mmol/L (25-35)
[2018-11-24 09:16] LABS: ALB/GLOB RATIO 0.7; ALBUMIN 2.3 g/dL (3.5-5.0); DIRECT BILIRUBIN 6.1 mg/dL (0.00-0.20); TOTAL BILIRUBIN 6.81 mg/dL (0.20-1.00); TOTAL PROTEIN 5.8 g/dL (6.3-8.3)
[2018-11-24 09:18] LABS: BANDS 10 % (0-1); LYMPHS 3 % (21-51); MONO 5 % (1-9); SEGS 82 % (42-75)
[2018-11-24] MEDS: BRIVIACT PO SCH ×2 (09:38→22:22)
--- NOTE | 2018-11-24 15:32 | PROGRESS NOTE ---
DATE: 11/24/2018 SUBJECTIVE: The patient is still somewhat confused. He is eating very minimally, but he is drinking liquids. OBJECTIVE: Blood pressure 121/58, heart rate 85, respiratory rate 18, temperature 97.9, 97% on room air. Cardiovascular: Regular rate and rhythm. Pulmonary: Bilateral breath sounds, clear to auscultation. GI: Soft, nontender and nondistended. Bowel sounds are positive. LABORATORY DATA: White count 11, hemoglobin and hematocrit of 8 and 25, platelets 291. Sodium 130. AST and ALT of 150 and 58. Total bilirubin is 6.8 with most of that being direct bilirubin of 6.1. Microbiology: Urine culture negative. One culture positive for Streptococcus parasanguis, sensitive to everything except penicillin G. PROBLEM LIST: 1. Urinary tract infection. Currently on Rocephin. Will continue to monitor. 2. Metastatic bladder cancer with hepatic metastases, and it looks like he has bony metastases as well. His liver function is declining. Gastroenterology has been consulted but without chemotherapy, which he has decided against way before this happened. There is not likely much to be done. He has obstructive jaundice but unsure if this will be helpful. Dr. Chávez is supposed to evaluate. I am not sure if the family really wants to pursue anything aggressive and it may not help long-term. We will continue supportive measures. They are deciding about palliation for him. 3. Streptococcus bacteremia. Attempted to get a consult with Dr. Hernandez, but the patient chased Dr. Hernandez out of the room, I think mostly because he is confused and family member was not present, but we discussed that sometimes this is a contaminant, but considering his comorbidities we would do Rocephin and we could do Levaquin orally once we are ready for discharge, especially if we decide on hospice care. DISPOSITION: Continue supportive measures as family decides what they are going to do long-term. The patient is from [place] but I am not sure at this point if he will make a trip to [place]. cc: Henry Palomares MD
[2018-11-24] MEDS: NS 1,000 ML IV SCH (18:16)
[2018-11-24] MEDS: DETROL PO SCH (22:22)
[2018-11-24] MEDS: VITAMIN D PO SCH (22:23)
[2018-11-24] MEDS: ROCEPHIN 2 GM in NS 50 ML IV SCH (22:23)
--- NOTE | 2018-11-24 22:23 | PROVIDER PROGRESS NOTE ---
Progress Note SUBJECTIVE: No acute overnight events. Afebrile. Patient remains confused OBJECTIVE: Last Vital Signs Temp 98.7 F 11/24/18 19:45 Pulse 97 H 11/24/18 19:45 Resp 18 11/24/18 19:45 BP 120/53 11/24/18 19:45 Pulse Ox 92 L 11/24/18 19:45 Height 5 ft 10 in Weight 141 lb 6 oz GEN: awake, confused HEENT: icterus present, MMM NECK: supple, no NAD CV: RRR, no murmurs PULM: CTAB ABD: soft NT/ND, NABS EXT: no cce NEURO: confused, moving all extremities SKIN: Jaundiced LABS: 11/24/18 11/24/18 11/24/18 07:10 07:10 07:10 WBC 11.33 H Hgb 8.2 L Plt Count 291 Sodium 130 L Potassium 4.0 Chloride 94 L Carbon Dioxide 22 L BUN 12 Creatinine 0.5 L Calcium 8.7 L Total Bilirubin 6.81 H Direct Bilirubin 6.10 H AST 150 H ALT 58 H Alkaline Phosphatase 597 H Total Protein 5.8 L Albumin 2.3 L A/P: Mr. Durga Field is an 78-year-old gentleman with a past medical history significant for metastatic bladder cancer with metastases to the bone and liver, who presents with several days of altered mental status, found to have a worsening cholestatic LFTs, bacteremia with gram-positive cocci (suspected contaminant), and urinary tract infection. The patient is currently on antibiotics. 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 Family is leaning toward hospice. Unclear if palliative CBD stent placement would help improve cholestasis. # Obstructive jaundice: intrahepatic, infiltrative: continue ongoing GOC discussions; avoid hepatotoxic medications # Confusion: unlikely from PSE as patient does not have acute liver failure; correct lytes; treating UTI # UTI: on abx # Metastatic bladder cancer: oncology following; palliative care following Will follow with you. Please call with questions.
[2018-11-25] MEDS: PRILOSEC PO SCH (06:11)
[2018-11-25 07:41] LABS: EOS# 0.06 X1000 (0.0-0.7); EOS% 0.6 % (0.0-10.0); HEMATOCRIT 24.1 % (42.0-52.0); HEMOGLOBIN 7.7 g/dL (14.0-18.0); IMM GRAN# 0.05 X1000 (0.0-0.04); IMM GRAN% 0.5 % (0.0-0.5); LYMPH# 0.42 X1000 (1.2-3.4); LYMPH% 4.3 % (20.5-51.1); MCH 27.2 PG (27-31); MCV 85.2 FL (81-99); MONO# 0.41 X1000 (0.11-0.59); MONO% 4.2 % (1.7-9.3); MPV 9.3 FL (7.4-10.4); NEUT# 8.75 X1000 (1.4-6.5); NEUT% 90.4 % (42.2-75.2); PLT 301 X1000 (130-400); RBC 2.83 XMIL (4.7-6.1); RDW 19.1 % (11.5-14.5); WBC 9.69 X1000 (4.8-10.8)
[2018-11-25 08:23] LABS: AGAP 10; BUN 14 mg/dL (8-22); CALCIUM 9.2 mg/dL (8.8-10.2); CHLORIDE 97 mmol/L (98-107); COSMO 263; CREATININE 0.6 mg/dL (0.7-1.2); ESTIMATED GFR > 60; GLUCOSE 102 mg/dL (70-104); POTASSIUM 3.8 mmol/L (3.5-5.1); SODIUM 131 mmol/L (136-145); TCO2 24 mmol/L (25-35)
[2018-11-25 08:32] LABS: BANDS 10 % (0-1); EOS 1 % (1-10); LYMPHS 3 % (21-51); MONO 5 % (1-9); SEGS 81 % (42-75)
[2018-11-25] MEDS: PYRIDIUM PO SCH ×3 (09:10→16:52)
[2018-11-25] MEDS: FLOMAX PO SCH (09:10)
[2018-11-25] MEDS: VITAMIN C PO SCH (09:11)
[2018-11-25] MEDS: CULTURELLE PO SCH (09:11)
[2018-11-25] MEDS: ASPIRIN EC PO SCH (09:11)
[2018-11-25] MEDS: CALTRATE 600 + D PO SCH (09:11)
[2018-11-25] MEDS: NS 1,000 ML IV SCH ×2 (09:12→14:05)
[2018-11-25] MEDS: BRIVIACT PO SCH ×4 (09:13→20:47)
--- NOTE | 2018-11-25 09:51 | HEMO/ONC PROGRESS NOTE ---
DATE: 11/25/2018 SUBJECTIVE: Mr. Field is alone in his room this morning. He does appear uncomfortable, although he states he is not in any pain. He remains confused. States he does not know where he is. He does not answer questions appropriately. He appears jaundiced. OBJECTIVE: Vital Signs: Temperature 97.7 degrees, pulse rate 80, blood pressure 111/39, O2 saturation 92% on room air, 0/10 pain. Physical Examination: General: He is awake and confused. HEENT: Icterus noted. Cardiovascular: Normal S1 and S2. Regular rate and rhythm. Respiratory: Clear to auscultation. Abdomen: Soft, nondistended, and nontender. Skin: Jaundiced. Neurological: The patient is oriented to self. Moves all 4 extremities. Extremities: Left BKA noted. Mild edema noted to the right leg. Laboratory: WBC 9.69, hemoglobin 7.7, hematocrit 24.1, platelet count 301,000. Creatinine 0.6. ASSESSMENT: 1. Febrile illness. 2. Metastatic bladder cancer with hepatic metastasis and possible bony metastasis. 3. Streptococcus bacteremia. 4. Altered mental status. 5. History of deep venous thrombosis. PLAN: The patient is from out of [facility]. He is here visiting family. He was diagnosed with bladder cancer several years ago and was diagnosed with metastatic disease to the liver in June of this year. Due to his poor performance status, no chemotherapy was recommended. His plan of care has been comfort measures. Dr. Summers had a lengthy discussion regarding the patient's status with the family. Comfort measures and hospice have been discussed. They would ultimately like to take him back home to [place] so recommending continued current management and hope for mental status recovery in the next 48 hours or so. We are hoping that he will be able to return home to [place] if he can recover from this illness. Dictated by FAITH Del Castilol for Cas Summers MD cc: Cas Summers MD [facility]
--- NOTE | 2018-11-25 11:01 | GASTROENTEROLOGY PROGRESS NOTE ---
DATE: 11/25/2018 SUBJECTIVE: The patient is lying in bed. I spoke to the patient and the patient's family of the options for treatment of jaundice that includes possible ERCP to see if common bile duct or common hepatic duct stenting can help with the jaundice. The patient and family will consider the option and let us know. I also called Dr. Chávez consult, and I spoke to Dr. Chávez in person. Dr. Chávez has also seen the patient. At this moment, the patient is not interested in pursuing any intervention, including ERCP, but the patient and family will consider all the options available and let us know. OBJECTIVE: Vital Signs: Temperature of 97.7 degrees, pulse of 80, respiratory rate of 17, blood pressure 111/39, saturating 92% on room air. Body weight of 141 pounds 6 ounces. BMI of 20.3 kg. General: Thinly built, lying in bed in no acute distress. HEENT: Pale conjunctivae. Icteric sclerae. Neck: Supple. Abdomen: Soft, nontender, nondistended. No guarding. Extremities: He has left below-knee amputation. Neurologic: He was awake and alert and answers simple questions. He was oriented to his name and date of . LABORATORY DATA: Hemoglobin and hematocrit are 7.7 and 24.1, white count of 9.69, platelet count of 301,000. Sodium 139, potassium 3.8, chloride 97, bicarb 24, anion gap 10, BUN of 14, creatinine 0.6, glucose 102, calcium 9.2. Total bilirubin 6.81, direct of 6.1, AST 150, ALT 58, alkaline phosphatase 597, total protein is 5.8, albumin of 2.3. Blood culture 1/2 cultures showed Streptococcus parasanguinis, which was sensitive to multiple antibiotics. IMPRESSION AND PLAN: 1. Obstructive jaundice. 2. Urinary tract infection. 3. Metastatic bladder cancer. 4. Altered mental status. 5. Bacteremia with gram-positive cocci speciation into Streptococcus, which is vieira sensitive to antibiotics. RECOMMENDATIONS: We have discussed possibly doing ERCP with the patient and family and also with Dr. Chávez. The patient and family will consider all their options, and will let us know. In the meanwhile, continue antibiotics, and continue on GI prophylaxis with PPIs. The above plans were discussed with the patient and family at bedside, and all questions were answered. Please call us with any further questions. cc: MD Dr. Humberto Phillips Dr., MD
--- NOTE | 2018-11-25 11:41 | PROGRESS NOTE ---
DATE: 11/25/2018 SUBJECTIVE: No acute events overnight. The patient continues to intermittently agitated. The patient's vital signs have been stable. Denies any pain this morning. OBJECTIVE: Vital signs: Temperature 97.7 degrees, heart rate 80 blood pressure 111/39, oxygen saturation 92% on room air. General: No acute distress. Resting comfortably in bed, alert and oriented to person, but not to place, time, or situation. Respiratory: Good respiratory effort without audible wheezing or rales. Abdomen: Soft, nontender, nondistended. No palpable masses or hepatosplenomegaly. Genitourinary: No suprapubic tenderness. No CVA tenderness. LABORATORY DATA: White blood cell count 9.7, hemoglobin 7.7, hematocrit 24.1, platelets 301,000. Sodium 131, potassium 3.8, chloride 97, bicarbonate 24, BUN 14, creatinine 0.6, glucose 102, calcium 9.2. MICROBIOLOGY: Urine culture shows no growth. Blood culture growing Streptococcus parasanguinis. ASSESSMENT AND PLAN: Mr. Field is an 78-year-old with history of metastatic bladder cancer, seizures, and deep vein thrombosis, who presents in evaluation for possible urinary tract infection. Urinalysis has shown no evidence of bacteria. The patient's stent appeared to be in good position. The patient continues to be intermittently agitated and confused. Per nursing, the patient had CT scan evidence of multiple metastatic lesions in the liver and the bone, as well as a large lymph node within the left iliac chain as well as nodes that are pressing on his common bile duct. The patient has been seen by GI Medicine as well as Hematology/Oncology, and it appears the patient is proceeding toward hospice care. The patient does appear to have significantly worsened bladder cancer that likely was progressing. I have not seen the family in the last several days, but from a urologic standpoint appears that he is stable and having no issues. We will continue to monitor from a urologic standpoint. Please call with questions or concerns. cc: Rupesh Perdue MD [facility]
[2018-11-25] MEDS: PATIENT'S OWN MED PO SCH ×4 (11:47→20:47)
--- NOTE | 2018-11-25 14:43 | GASTROENTEROLOGY PROGRESS NOTE ---
DATE: 11/25/2018 SUBJECTIVE: This is Dr. Nelson's patient. I was asked to see the patient to evaluate for possible ERCP. Patient has presented with obstructive jaundice. The chart was reviewed, labs reviewed, which indeed show evidence of obstructive jaundice and possible obstruction at the proximal biliary duct close to joy hepatitis. Appears to be from external compression from the metastatic lesion. Patient has underlying bladder CA with metastases. Discussed the procedure, risks, benefits, alternatives with the patient as well as the patient did not want to have any kind procedures done, but considering that he is not completely conscious and oriented, I have also discussed the case and the procedure, risks, benefits and alternatives with daughter and his . After lengthy discussion, they have decided to talk among themselves and would call me if ERCP would be considered. I will be available if needed. cc: Jaylon Chávez MD
[2018-11-25] MEDS: ROCEPHIN 2 GM in NS 50 ML IV SCH (20:48)
[2018-11-25] MEDS: MELATONIN PO SCH (20:49)
[2018-11-25] MEDS: DETROL PO SCH (20:49)
[2018-11-25] MEDS: OXY IR PO PRN (20:49)
[2018-11-25] MEDS: VITAMIN D PO SCH (20:49)
--- NOTE | 2018-11-25 22:14 | PROGRESS NOTE ---
DATE: 11/25/2018 INTERVAL HISTORY: I was informed in the morning time by the nursing team and the palliative care team that, though initial plan was for patient to undergo stent and the plans were postponed, as patient wanted to talk. The patient had clearly stated that he had not want to go for bile duct, common hepatic duct stent placement. However, he wanted to talk with his regular doctor in [place] first. No other acute events. SUBJECTIVE: At the time of my evaluation, patient and his family tells me that they did have discussion with the patient's regular doctor and they decided that they would like to go ahead and proceed with the stent placement. VITALS: Currently temperature 98.1 degrees, pulse 80, respiratory rate 18, blood pressure 120/53, saturating 91% on room air. PHYSICAL EXAMINATION: General: Patient does not appear in any acute distress. HEENT: Oral cavity is moist. The patient does have very prominent icterus affecting sclerae and skin. Lungs: Air entry equal bilaterally. No wheeze, rhonchi, or crackles. Cardiovascular: S1, S2 normal. No murmur or gallop. Abdomen: Soft, nontender. He does have some fullness in the right upper quadrant. Extremities: No lower extremity edema. LABS: Suggestive of normocytic anemia, normal platelet count. He does have hyponatremia, hypochloremia, normal kidney function, and hyperbilirubinemia. Microbiology: One of the 2 blood cultures was growing Streptococcus viridans. Urine culture did not have any growth. ASSESSMENT AND PLAN: 1. Suspected urinary tract infection. Urine culture did not have any growth. 2. Streptococcus viridans bacteremia. The patient had dental procedures 2 weeks prior to presentation, which could have caused Streptococcus viridans bacteremia or it could be just contaminant as well. I will repeat 2 blood cultures. Continue intravenous ceftriaxone. Later on my plan is to discharge him on Levaquin. 3. Metastatic bladder cancer with hepatic metastasis leading to obstruction of common hepatic duct. Bony metastasis involving and destroying left acetabulum. He has severe obstructive jaundice. Dr. Chávez has been consulted to see if he would need a stent in his hepatic duct for palliative measures. I will appreciate recommendations. The patient's family now is in agreement to go ahead with the stent, pending further Gastroenterology recommendations. Hematology/oncology is also on board. He has not been on any palliative chemotherapy. DISPOSITION: I am awaiting further GI recommendation to see if he would need a palliative stent, and family would like to discuss the risk versus benefit with Gastroenterology before proceeding. If he gets stent and he does okay, my plan is to discharge him early Thursday morning so the family can take him to [place] on oral antibiotics. Plan of care discussed with the family. All of their questions have been answered. cc: Jose Ge MD
[2018-11-26] MEDS: PRILOSEC PO SCH (06:06)
[2018-11-26] MEDS: NS 1,000 ML IV SCH ×2 (07:25→16:41)
[2018-11-26 07:54] LABS: AGAP 10; BUN 15 mg/dL (8-22); CHLORIDE 101 mmol/L (98-107); COSMO 271; CREATININE 0.5 mg/dL (0.7-1.2); ESTIMATED GFR > 60; GLUCOSE 91 mg/dL (70-104); POTASSIUM 3.8 mmol/L (3.5-5.1); SODIUM 135 mmol/L (136-145); TCO2 24 mmol/L (25-35)
[2018-11-26] MEDS: ASPIRIN EC PO SCH (10:04)
[2018-11-26] MEDS: PATIENT'S OWN MED PO SCH ×2 (10:04→21:39)
[2018-11-26] MEDS: CALTRATE 600 + D PO SCH (10:04)
[2018-11-26] MEDS: BRIVIACT PO SCH ×2 (10:04→21:38)
[2018-11-26] MEDS: FLOMAX PO SCH (10:05)
[2018-11-26] MEDS: PYRIDIUM PO SCH ×3 (10:05→16:41)
[2018-11-26] MEDS: CULTURELLE PO SCH (10:05)
[2018-11-26] MEDS: VITAMIN C PO SCH (10:05)
[2018-11-26] MEDS ORDERED: DIPRIVAN 1% 500 MG/50 ML BOTTLE ONE (15:42)
[2018-11-26] MEDS ORDERED: INDOCIN ONE (15:45)
[2018-11-26] MEDS ORDERED: GLUCAGON ONE (16:45)
[2018-11-26] MEDS ORDERED: NEO-SYNEPHRINE ONE (16:51)
[2018-11-26] MEDS ORDERED: SODIUM CHLORIDE 0.9% 10 ML ONE (16:51)
[2018-11-26] MEDS ORDERED: DIPRIVAN 1% ONE (17:02)
--- NOTE | 2018-11-26 18:36 | Diag Imaging Result Doc PS360 ---
ERCP-BILIARY AND PANCREATIC - 11/26/2018 INDICATION: Obstructive Jaundice with Dr Chávez TECHNIQUE: The exam was performed by the patient's endoscopist. Five images were obtained. COMPARISON: CT from 11/21/2018 FINDINGS: On contrast injection of the common bile duct, there is severe intrahepatic biliary dilation. There is severe stricturing at the upper common bile duct. A common bile duct stent was placed in good position. There is an IVC filter. IMPRESSION: Severe biliary obstruction. Successful stent placement. Electronically signed by Mickey Obregon 11/26/2018 6:34 PM
[2018-11-26] MEDS ORDERED: CLARITIN PO ONE (19:35)
[2018-11-26] MEDS ORDERED: BENADRYL IV PRN (19:37)
[2018-11-26] MEDS ORDERED: LEVAQUIN 500 MG/D5W 500 MG/100 ML IVPB IV SCH (20:15)
--- NOTE | 2018-11-26 21:19 | PROGRESS NOTE ---
DATE: 11/26/2018 INTERVAL HISTORY: Patient underwent ERCP and bile duct stent placement today, which he tolerated well. I am seeing him postprocedure. Patient is complaining of abdominal distention and that he needs to have a bowel movement. He is also complaining of some nausea. Denies any vomiting though. He has not had a bowel movement. OBJECTIVE: Vital Signs: Temperature 97.6 degrees, pulse 76, respiratory rate 16, blood pressure 135/54, saturating 95% on 2 L nasal cannula. General: He does not appear in any acute distress. Oral Cavity: Dry. Lungs: Air entry bilaterally equal. No wheeze, rhonchi, or crackles. Heart: S1, S2 normal. No murmur or gallop. Abdomen: Soft, distended, nontender. Tympanic to percussion. Extremities: No lower extremity edema. LABORATORY: Input and output suggest he has not had a bowel movement since a few days now. In fact, there is no documented bowel movement since last 4 days. Labs suggestive of normocytic anemia, normal platelet count, hyponatremia, normal kidney function. MICROBIOLOGY: Repeat blood culture has been negative. IMAGING: No new imaging today except ERCP x-ray which suggests successful placement of the stent. ASSESSMENT AND PLAN: 1. Streptococcus viridans bacteremia after dental procedure 2 weeks prior to presentation, which could have caused this. He is not spiking fevers and he does not have leukocytosis; however, considering his immunocompromised condition, I will treat it. I will change intravenous antibiotics to oral levofloxacin and give him as needed medications for itching. Repeat blood culture has not shown any growth. Considering long-term goal, I would not pursue further investigation in terms of echocardiogram. 2. Metastatic bladder cancer with hepatic metastasis, leading to obstruction of common hepatic duct, bony metastasis involving and destroying left acetabulum, severe jaundice. He is status post endoscopic retrograde cholangiopancreatography on 11/26/2018 for palliative purpose and to help relieve his obstructive jaundice. 3. Others. Start patient on MiraLAX and bisacodyl for constipation; continue tamsulosin, tolterodine for bladder spasm; oxycodone as needed for pain; sumatriptan briviact and lamotrigine, which are his home medications. 4. Disposition. Apparently, patient does not have care set up at [place]. My plan is to keep him inside the hospital. Patient's family tells me that they should be able to set everything up on Thursday. If patient is hemodynamically stable, my plan is to discharge him home on Thursday morning if he has hospice care set up to take care of him, since that would help patient's last wishes and goals of care. Plan of care extensively discussed with patient's and daughter at bedside. All of their questions have been answered. cc: Jose Ge MD
[2018-11-26] MEDS: MIRALAX PO SCH (21:37)
[2018-11-26] MEDS: VITAMIN D PO SCH (21:38)
[2018-11-26] MEDS: DULCOLAX PR SCH (21:38)
[2018-11-26] MEDS: DETROL PO SCH (21:38)
[2018-11-26] MEDS: MELATONIN PO SCH (21:38)
[2018-11-27] MEDS: PRILOSEC PO SCH (06:20)
[2018-11-27] MEDS: CULTURELLE PO SCH (08:07)
[2018-11-27] MEDS: VITAMIN C PO SCH (08:07)
[2018-11-27] MEDS: FLOMAX PO SCH (08:07)
[2018-11-27] MEDS: ASPIRIN EC PO SCH (08:07)
[2018-11-27] MEDS: BRIVIACT PO SCH ×2 (08:07→20:36)
[2018-11-27] MEDS: CALTRATE 600 + D PO SCH (08:07)
[2018-11-27] MEDS: DULCOLAX PR SCH ×2 (08:07→20:37)
[2018-11-27] MEDS: MIRALAX PO SCH ×2 (08:07→20:37)
[2018-11-27] MEDS: PATIENT'S OWN MED PO SCH ×2 (08:20→20:37)
[2018-11-27] MEDS ORDERED: ZOFRAN IV PRN (12:16)
[2018-11-27] MEDS ORDERED: MORPHINE IV PRN (12:16)
[2018-11-27] MEDS ORDERED: OXY IR PO PRN (12:16)
[2018-11-27] MEDS ORDERED: MILK OF MAGNESIA PO PRN (12:16)
[2018-11-27] MEDS: OXY IR PO PRN (12:27)
[2018-11-27] MEDS ORDERED: NS 1,000 ML IV SCH (12:30)
[2018-11-27] MEDS ORDERED: TYLENOL PO SCH (12:30)
[2018-11-27] MEDS ORDERED: HALDOL IV PRN (12:30)
[2018-11-27 13:25] LABS: ALB/GLOB RATIO 0.8; ALBUMIN 2.3 g/dL (3.5-5.0); DIRECT BILIRUBIN 2.7 mg/dL (0.00-0.20); TOTAL BILIRUBIN 3.7 mg/dL (0.20-1.00); TOTAL PROTEIN 5.1 g/dL (6.3-8.3)
--- NOTE | 2018-11-27 13:38 | PROGRESS NOTE ---
DATE: 11/27/2018 INTERVAL HISTORY: Patient had a small bowel movement yesterday and 1 in the morning time. He is drinking liquids. Denies any complaints. He has been passing gas. He denies any chest pain or shortness of breath. Family is at bedside. We discussed about possible discharge tomorrow. I told them that I would write him prescriptions of antibiotics. We discussed about the negative repeat blood culture and I told them that if the patient is hemodynamically stable, not needing oxygen and is able to be transferred out of bed to the wheelchair and he is following commands and not agitated, than I should be okay to discharge him 1st thing in the morning tomorrow. VITALS: Temperature 97.5 degrees, pulse 74, respiratory rate 18, blood pressure 136/58 saturating 100% on 2 L nasal cannula. PHYSICAL EXAMINATION: Appears to have jaundice. A little fidgety but appears alert. Oral cavity is dry.Lungs: Air entry is bilaterally equal. No wheeze, rhonchi, crackles. Cardiovascular: S1, S2 normal. No murmur, rub, or gallop. Abdomen: Distended with gas, nontender. Active bowel sounds. Extremities: He has left lower extremity below-knee amputation. Right lower extremity, no edema. Neurologic: He is alert. He is following simple commands. CHEMISTRY: BMP is in acceptable range. Liver function tests are pending, which I would assume would still be elevated considering he just had a stent yesterday. ASSESSMENT AND PLAN: 1. Streptococcus viridans bacteremia after dental procedure 2 weeks prior. However, he did not have fever during hospital admission and did not have leukocytosis and only 1 of the 2 blood cultures 2nd positive so this could just be a contaminant. However, considering his altered mental status and agitation on presentation and his immunocompromised situation, I would treat him with levofloxacin for 2 weeks. 2. Metastatic bladder cancer with hepatic metastasis leading to common hepatic duct compression, bony metastasis destroying left acetabulum and severe jaundice status post ERCP on November 26 and placement of stent for palliative purposes. I will continue pain management with oxycodone. Continue stool softeners to have bowel regimen and give him haloperidol prescription for as needed agitation. 3. Acute encephalopathy on presentation: Likely metabolic with possibly contributions from streptococcal bacteremia. Now has almost resolved after antibiotics. 3. Others continue tamsulosin and tolterodine for bladder spasm; Broviac, lamotrigine, which are his home medications; loratadine for itching if needed. 4. Disposition: The patient's last wishes are to go back to [place]. He has metastatic bladder cancer with multiple metastasis and the plan is to start hospice care if he reaches [place]. Considering his last wishes, I will discharge him 1st thing tomorrow morning if he is hemodynamically stable, he is following commands, is not needing oxygen. I will go ahead and place a discharge order today and family has agreed to take him directly to the car and started driving to [place] tomorrow morning and I would respect those wishes. I would also have Physical Therapy help him exercise a little bit today. Plan of care discussed with family. All of the questions have been answered. cc: Jose Ge MD [facility]TD[facility]
[2018-11-27] MEDS: LEVAQUIN PO SCH (16:38)
--- NOTE | 2018-11-27 17:11 | GASTROENTEROLOGY PROGRESS NOTE ---
DATE: 11/27/2018 Resting in bed. He is currently sleepy was able to wake on command. He has abdominal pain. He got some narcotics. He had a common bile duct stent placement by Dr. Chávez yesterday. His bilirubin has come down to 3. He had a small bowel movement today. He appears to be constipated, he is on laxatives. I spoke with the patient and the family bedside. Vitals: Temperature 97.6 degrees, pulse of 70, respiratory rate 17, blood pressure 128/60 saturating 100% room air, body weight of 141 pounds 6 ounces, BMI 20.3 kg. General: Thinly built lying in bed currently sleeping, was able to awake on commands. HEENT: Positive pallor. Mild icterus. Neck: Supple. Abdomen: Is protuberant, mild discomfort in the pelvic region. No rebound, guarding. Extremities: No cyanosis, clubbing. Neuro: He was sleep, was able to awake on commands, answer simple questions. LABS: His total bilirubin 3.7, direct of 2.7, AST 111, ALT 53, alkaline phosphatase 593, total protein is 5.1, albumin of 2.3. Blood culture x2 negative 48 hours from 11/25/2018. ERCP x-ray had shown severe biliary dilation and successful stent placement. IMPRESSION AND PLAN: 1. Streptococcus viridans bacteremia after dental procedure 2 weeks prior. 2. Metastatic bladder cancer with hepatic metastasis. 3. Common hepatic duct compression from joy hepatitis lesion status post endoscopic retrograde cholangiopancreatography stent Dr. Chávez on 11/26/2018. 4. Chronic pain. 5. Constipation. 6. Encephalopathy. 7. Bladder spasms. RECOMMENDATIONS: The patient bilirubin is trending down after successful stent placement. He continues to be on antibiotics. He will continue on GI bowel regimen with MiraLAX twice daily. He will continue on GI prophylaxis with Prilosec 20 mg daily. He will continue on oxycodone as needed. The patient plans to go back to his home in [place]. The family will be driving him back. He is going home with home hospice per the patient and family wishes. I discussed the above plan with patient and the family bedside and all questions answered. Please call us with any further questions. We will sign off at this time. cc: Flash MD Dr. Humberto Nelson Dr.
[2018-11-27] MEDS ORDERED: KEFZOL 1 GM/D5W 1 GM/50 ML IVPB IV SCH (18:30)
[2018-11-27] MEDS ORDERED: PRILOSEC PO ONE (19:45)
[2018-11-27] MEDS: VITAMIN D PO SCH (20:36)
[2018-11-27] MEDS: MELATONIN PO SCH (20:36)
[2018-11-27] MEDS: DETROL PO SCH (20:36)
[2018-11-27] MEDS ORDERED: COLACE PO SCH (21:00)
--- NOTE | 2018-11-27 21:15 | DISCHARGE SUMMARY ---
ADMISSION DATE: 11/22/2018 DISCHARGE DATE: DISCHARGE DISPOSITION: The patient is traveling back to [place] with his family in a car, where he lives. DISCHARGE CONDITION: At the time of dictation he is hemodynamically stable, alert. He is oriented to himself, to place and situation, and follows all simple commands. DISCHARGE DIAGNOSES: 1. Acute encephalopathy. 2. Streptococcus viridans bacteremia. 3. Newly found hepatic metastasis from his bladder cancer, causing compression of hepatic duct at joy hepatitis. 4. Constipation. 5. Normocytic anemia. 6. Hyponatremia. 7. Hypochloremia. 8. Obstructive jaundice. OTHER DIAGNOSES: 1. History of bladder cancer, metastasis to liver and acetabulum left, destroying bone. 2. History of seizure. 3. History of urinary tract infection requiring left-sided ureteric stent as per history. 4. History of deep venous thrombosis. 5. History of left ureteral stent, inferior vena cava filter, bilateral hip surgery, left below- knee amputation. DISCHARGE MEDICATIONS: 1. Diclofenac patch 12-hour topical every 12 hours for hip and back pain. 2. Aspirin 325 mg tablet daily. 3. Briviact 50 mg p.o. b.i.d. 4. Calcium and vitamin D3, one tablet in the morning time. 5. Docusate 100 mg b.i.d. 6. Tolterodine 2 mg in nighttime. 7. Econazole 1 application daily to nails for fungus. 8. Mometasone 0.1% cream 1 application as needed for itching. 9. Tamsulosin 0.4 mg in the morning time. 10. Somatotropin 0.4 mg subcutaneously in the morning time. 11. Triamcinolone cream to be applied only when not using mometasone. 12. Lamotrigine extended-release 200 mg tablet 2 tablets at nighttime. 13. Lansoprazole 30 mg in the morning time. 14. Senna 8.6 mg tablet in the morning time as needed for constipation. 15. Melatonin 5 mg at nighttime. 16. Haloperidol 1 mg every 8 hours as needed for agitation; 10 tablets have been prescribed. 17. Levofloxacin 500 mg daily; 14 tablets have been prescribed. 18. Loratadine 10 mg daily as needed for itching; 5 tablets have been prescribed. 19. MiraLAX 17 g b.i.d.; 10 powders have been prescribed. 20. Oxycodone immediate-release 5 mg tablet every 4 hours as needed for pain; 12 tablets have been prescribed. 21. Ascorbic acid 1000 mg in the morning time. CONSULTATIONS: During this hospital admission, Urology, Dr. Perdue; Gastroenterology, Dr. Chávez and Dr. Faust; Hematology/Oncology, Dr. Summers. PROCEDURES: During hospital admission, the patient underwent ERCP-guided hepatic duct stent placement on 11/26/2018. PHYSICAL EXAMINATION: Vital signs at the time of this dictation: Temperature 97.5 degrees, pulse 74, respiratory rate 18, blood pressure 136/58, saturating 100% on 1 L nasal cannula. General: The patient has marked jaundice affecting face and sclerae. Oral cavity is dry. Air entry bilaterally equal. No wheeze, rhonchi or crackles. S1, S2 normal. No murmur, rub or gallop. Abdomen is distended with gas, tympanic to percussion. No tenderness. Fullness in the right upper quadrant. Active bowel sounds. Right lower extremity does not have edema. Left lower extremity has below-knee amputation. LABORATORY DATA: At the time of discharge, hemoglobin 7.7, platelets 301,000, WBC 9.6. Potassium 3.8, sodium 135, BUN 15, creatinine 0.5. His liver function tests on 11/24 had total bilirubin 6.8, direct bilirubin 6.1, AST 150, ALT 58, alkaline phosphatase 597. Ammonia of 30. Significant microbiology during hospital admission: One of the 2 blood cultures on 11/21 was growing Streptococcus parasanguinis, which was sensitive to levofloxacin. The repeat blood culture on 11/25 did not have any growth. DIAGNOSTIC DATA: Significant imaging during hospital admission: Chest x-ray on admission had mildly shallow inspiration, with atelectasis at lung bases. Abdomen and pelvis CT had heterogeneous enhancement of liver which apparently relates to hepatic metastasis; intrahepatic biliary ductal dilatation with possible obstruction of common hepatic duct by lymph nodes at the joy hepatis; a 3.7 x 3.9 cm abdominal aortic aneurysm; retroperitoneal adenopathy; large adenopathy in left iliac region with destructive lesion involving left acetabulum; left inguinal adenopathy; left ureteric stent in place without any evidence of pyelonephritis. Head CT on presentation had no visible acute intracranial abnormality; no hemorrhage, mass or abnormal enhancement. The head CT was with contrast. It did not detect any metastasis. HOSPITAL COURSE SUMMARY: Mr. Field is an 78-year-old man with past medical history of metastatic and urinary bladder cancer, with liver metastasis and left-sided iliac mass, and DVT. He was brought to the emergency room due to altered mental status of about 3 days duration. He has been more confused, combative and agitated, according to the family. Apparently the patient lives in [place] and was diagnosed with bladder cancer in 2012, which had later on become metastasized. The family were planning to begin hospice care in [place]. One of the patient's last wishes was to visit [place] and see his friends and family, so he was in [place] visiting his friends and family; however, while here, his mental status started getting worse and he was brought to the emergency room. In the emergency room, CT scan head with IV contrast did not have any acute pathology. He was found to have diffuse hepatic metastasis with some marked jaundice, predominantly direct bilirubinemia and an obstruction of the common hepatic duct at the joy hepatis. There was also concern for urinary tract infection, since he has had repeated urinary tract infections requiring left ureteral stent in the past. He was admitted and was started with intravenous fluids and intravenous antibiotics. Eventually though, urine culture did not have any growth. One of the 2 blood cultures was growing Streptococcus parasanguinis. Considering the patient's immunocompromised status and dental procedures 2 weeks prior to presentation, it was decided to treat it with initial intravenous antibiotics, and at the time of discharge oral antibiotics. The patient's last wish was to go back to [place] and resume hospice care, so the Gastroenterology team was consulted for palliative ERCP and stent placement in his common hepatic duct, which he underwent on 11/26/2018. At the time of discharge the family, including daughter and , were explained about his clinical condition. They were provided prescriptions for antibiotics, pain medication and stool softeners. Considering they had to leave for [place] really early in the morning time, it was decided to place a discharge order. In the comments section I had mentioned to discharge him if he was hemodynamically stable, was following commands and did not have any significant acute overnight events. More than 30 minutes were spent discharging this patient. cc: Jose Ge MD
[2018-11-28] MEDS ORDERED: XARELTO PO SCH (06:00)
[2018-11-28 07:36] VITALS: BP 105/62
[2018-11-28] MEDS ORDERED: FERROUS SULFATE PO SCH (08:00)
[2018-11-28] MEDS: ASPIRIN EC PO SCH (08:20)
[2018-11-28] MEDS: CALTRATE 600 + D PO SCH (08:20)
[2018-11-28] MEDS: PRILOSEC PO SCH (08:20)
[2018-11-28] MEDS: CULTURELLE PO SCH (08:20)
[2018-11-28] MEDS: BRIVIACT PO SCH (08:20)
[2018-11-28] MEDS: VITAMIN C PO SCH (08:20)
[2018-11-28] MEDS: FLOMAX PO SCH (08:20)
[2018-11-28] MEDS: LEVAQUIN PO SCH (08:20)
[2018-11-28] MEDS: PATIENT'S OWN MED PO SCH (08:21)
[2018-11-28] MEDS: DULCOLAX PR SCH (08:21)
[2018-11-28] MEDS: MIRALAX PO SCH (08:21)
== END 2018-11-28 09:30 | disposition home or self-care (01) | DRG 862 ==
LOC: ED 18:30 → 3N 11-22 01:30 → SUATTDRO 11-22 01:30 → 3N 11-23 14:33
PROVIDERS: ATTEND Internal Medicine
PROC: EN.ERCP (2018-11-26 15:55)
CPT/HCPCS: 51701; 70460; 71010; 71045; 74177; 74330; 80048; 80053; 80076; 81001; 82140; 82550; 82948; 83605; 83935; 84300; 84484; 85025; 85610; 85730; 87040; 87077; 87088; 87186; 93005; 96365; 99285; A9270; C2617; J0696; J1610; J1630; J1956; J2270; J2370; J2405; J3370; J7030; J7050; P9612; Q9966; Q9967; XXXXX